=== PATIENT | female | born 1935 | race Caucasian/White ===

== ENCOUNTER 2017-07-30 11:06 | Outpatient (CLI) | payer MEDICARE, OTHER ==
[2016-02-17 10:10] VITALS: Ht 157.5 cm; Wt 74.4 kg
[~2017-07-30] VITALS: Ht 157.5 cm; Wt 74.4 kg
--- NOTE | ~2017-07-30 | HEMODYNAMI ---
PATIENT:EMILY RÍOS MEDICAL RECORD: [id number] : 37 LOCATION:D.CAT ADMISSION DATE: 07/30/17 Generatedon:07/30/201714:51 Patient name: EMILY RÍOS Patient #: [id number] SSN: : 1935 Date of study: 07/30/2017 Page: Of Hemodynamic Procedure Report Patient Data Patient Demographics Procedure consent was obtained First Name: EMILY Gender: Female Last Name: KHUSHBU : 1935 Middle Initial: E Age: 82 year(s) Patient #: [id number] Race: Unknown Additional ID: [id number] Contact details Address: [address] [place] [address] State: [place] City: [place] Zip code: [address] Past Medical History Allergies Allergen Reaction Date Comments Reported Other allergy Other 01/15/2016 Actonel, Levofloxacin, Nitrofurantoin Other allergy 07/30/2017 Actonel,Levofloxacin, Nitrofurantion Admission Admission Data Admission Date: 07/30/2017 Admission Time: 11:06 Admit Source: Other Lab Results Lab Result Date: 07/30/2017 Lab Result Time: 0:00 Biochemistry Name Units Result Min Max BUN mg/dl 12 --(-*--)-- 7 18 Creatinine mg/dl 0.6 --(*---)-- 0.6 1.3 CBC Name Units Result Min Max Hematocrit % 41.5 -*(----)-- 42 54 Hemoglobin g/dl 13.6 --(*---)-- 13.5 17.5 Procedure Procedure Types Cath Procedure Diagnostic Procedure LHC LHC w/Coronaries w/Grafts PCI Procedure Coronary Stent Coronary Stent Initial Miscellaneous Procedures Moderate Sedation up to 45 minutes Procedure Description Procedure Date Procedure Date: 07/30/2017 Procedure Start Time: 14:12 Procedure End Time: 14:51 Procedure Staff Name Function Chito Clayton MD Performing Physician Dane Lechuga RT Monitor Heide Reyes RT Scrub Katina Mckoy RN Nurse Procedure Data Cath Procedure Fluoroscopy Diagnostic fluoroscopy Total fluoroscopy Time: 6.2 time: 6.2 min min Diagnostic fluoroscopy Total fluoroscopy dose: 721 dose: 721 mGy mGy Contrast Material Contrast Material Type Amount (ml) Isovue 300 130 Entry Location Entry Primary Successful Side Size Upsize Upsize Entry Closure Succes sful Closure Location (Fr) 1 (Fr) 2 (Fr) Remarks Device Remarks Femoral Right 5 Fr 6 Fr Exoseal artery Short Estimated blood loss: 5 ml Diagnostic catheters Device Type Used For End Catheter Placement MULTIPACK JL 4.0 5Fr Procedure catheter DIAGNOSTIC AR MOD 5Fr Procedure Catheter ([id number]) MULTIPACK Pigtail 5 Fr Procedure catheter Procedure Complications No complications Procedure Medications Medication Administration Route Dosage Oxygen NC 2 l/min Heparin Flush Bag added to field 2 bags (1000units/500ml NS) 0.9% NaCl I.V. 100 ml/hr Fentanyl I.V. 50 mcg Versed I.V. 1 mg Versed I.V. 1 mg Fentanyl I.V. 50 mcg Heparin Bolus I.V. 7.5 units Nitroglycerin IC/IA I.C. 100 mcg Brilinta P.O. 180 mg Hemodynamics Rest HGB: 13.6 (g/dl) Heart Rate: 70 (bpm) Pressure Samples Time Site Value (mmHg) Purpose Heart Use Rate(bpm) 14:24 LV 172/-4,14 Snapshot 68 14:25 AO 153/65(98) Pullback 70 14:25 LV 170/2,16 Pullback 70 Gradients Valve Time Site 1 Site 2 Mean SEP/DFP Peak To Heart Use (mmHg) (sec/min) Peak Rate (mmHg) (bpm) Aortic 14:25 LV AO 15 19 17 70 170/2,16 153/65(98) Calculations Valve P-P Mean Valve Index Valve Source Name Gradient Area Flow (cm2) Aortic 17 15 17 15 Snapshots Pre Cath Intra NCS Post Cath Vital Signs Time Heart Resp SPO2 etCO2 NIBP (mmHg) Rhythm Pain Sedation Rate (ipm) (%) (mmHg) Status Level (bpm) 14:04:11 59 17 97 0 164/77(130) NSR 0 (11) 10(A) , No pain 14:08:52 74 19 98 0 144/80(137) NSR 0 (11) 10(A) , No pain 14:13:34 67 21 96 40.4 155/83(127) NSR 0 (11) 10(A) , No pain 14:18:15 74 20 96 31.2 141/80(124) NSR 0 (11) 10(A) , No pain 14:22:58 70 20 97 0 153/73(130) NSR 0 (11) 9(A) , No pain 14:27:42 69 19 98 17.5 130/73(118) NSR 0 (11) 9(A) , No pain 14:32:23 64 22 99 38.1 147/71(122) NSR 0 (11) 9(A) , No pain 14:37:06 65 20 98 37.3 146/77(123) NSR 0 (11) 9(A) , No pain 14:41:48 68 16 99 38.1 157/85(130) NSR 0 (11) 9(A) , No pain 14:46:31 78 22 98 35 162/93(126) NSR 0 (11) 10(A) , No pain 14:51:17 64 13 99 35 168/84(145) NSR 0 (11) 10(A) , No pain Medications Time Medication Route Dose Verified Delivered Reason Not es Effectiveness by by 14:02:28 Oxygen NC 2 l/min Chito Francisco J Per physician Forrest Hilton RN 14:02:42 Heparin Flush added 2 bags Chito Francisco J used for Bag to Forrest Hilton RN procedure (1000units/500ml field NS) 14:02:57 0.9% NaCl I.V. 100 Chito Francisco J Per physician ml/hr Forrest Hilton RN 14:08:45 Fentanyl I.V. 50 mcg Chito Francisco J for sedation Forrest Hilton RN 14:08:51 Versed I.V. 1 mg Chito Francisco J for sedation Forrest Hilton RN 14:13:55 Versed I.V. 1 mg Chito Francisco J for sedation Forrest Hilton RN 14:14:05 Heparin Bolus I.V. 7.5units Chito Francisco J for diane ified Forrest Hilton RN anticoagulation by 14:14:05 Fentanyl I.V. 50 mcg Chito Francisco J for sedation Forrest Hilton RN 14:42:53 Nitroglycerin I.C. 100mcg Chito Dale for IC/IA Forrest Clayton MD vasodilation 14:43:14 Brilinta P.O. 180 mg Chito [place] for Forrest Carrillo RN antiplatelet therapy Procedure Log Time Note 13:40:39 Informed consent obtained and on chart 13:40:54 Admit Source: Other 13:40:56 Diagnostic Cath status Elective 13:40:59 Time tracking: Regular hours 13:41:02 Plan of Care:Hemodynamics will remain stable., Cardiac rhythm will remain stable., Comfort level will be maintained., Respiratory function will remain adequate., Patient/ family verbilizes understanding of procedure., Procedure tolerated without complication., Recovers from procedure without complications.. 13:41:15 H&P Date Dictated: 07/17/2017 Within 30 days and on chart., H&P Addendum completed by physician on day of procedure. (MUST COMPLETE FOR ALL OUTPATIENTS). 13:44:44 Heide Reyes RT(R) sent for patient. Start room use. 13:50:36 Patient received from Pre/Post Procedure Room to CCL 1 Alert and oriented. Tansferred to table in Supine position. 13:50:42 Warm blankets applied, and misbah hugger turned on for patient comfort. 13:50:43 Correct patient and procedure confirmed by team. 13:50:45 ECG and BP/O2 sat monitors applied to patient. 14:02:28 Oxygen 2 l/min NC was administered by Francisco J Hilton RN; Per physician; 14:02:42 Heparin Flush Bag (1000units/500ml NS) 2 bags added to field was administered by Francisco J Hilton RN; used for procedure; 14:02:57 0.9% NaCl 100 ml/hr I.V. was administered by Francisco J Hilton RN; Per physician; 14:03:12 Vital chart was started 14:03:25 Rhythm: sinus rhythm 14:03:27 Pre-procedure instructions explained to patient. 14:03:28 Pre-op teaching completed and patient verbalized understanding. 14:03:30 Family in patients room. 14:03:32 Patient NPO since Midnight. 14:04:16 Patient allergic to Other allergyActonel,Levofloxacin, Nitrofurantion 14:04:19 Is the patient allergic to Iodine/contrast media? No. 14:04:21 Is patient on blood thinner?No 14:04:22 Patient diabetic? No. 14:04:26 Previous problem with sedation/anesthesia? No ? 14:04:27 Snore? Yes 14:04:28 Sleep apnea? No 14:04:30 Deviated septum? No 14:04:30 Opens mouth fully? Yes 14:04:31 Sticks out tongue? Yes 14:04:32 Airway obstruction? No ? 14:04:34 Dentures? No ? 14:04:37 Pre procedure: right dorsailis pedis pulse 1+ Palpable, but thready & weak; easily obliterated 14:04:40 Patient pain scale 0/10 ?. 14:04:58 IV patent on arrival in left forearm with 0.9% NaCl at [facility]. 14:05:26 Lab results completed and on chart. 14:06:51 Lab Result : BUN 12 mg/dl 14:06:51 Lab Result : Creatinine 0.6 mg/dl 14:06:51 Lab Result : Hematocrit 41.5 % 14:06:51 Lab Result : Hemoglobin 13.6 g/dl 14:07:46 Right groin area was prepped with chlora-prep and draped in sterile fashion 14:07:47 Alarms reviewed by R. N. 14:07:47 Sharps counted by scrub and verified by R.N. 14:07:52 Use device set Femoral Dx 14:07:55 ACIST Manifold (41311) opened to sterile field. 14:07:56 ACIST Hand Control (01087) opened to sterile field. 14:07:57 Medline Cath Pack ([id number]) opened to sterile field. 14:07:58 ACIST Syringe (21443) opened to sterile field. 14:07:59 Bag Decanter (2002S) opened to sterile field. 14:08:02 Tegaderm 4 x 4 (1626W) opened to sterile field. 14:08:04 PERCUTANEOUS ENTRY 19GA needle opened to sterile field. 14:08:05 DIAGNOSTIC Multipack 5Fr catheter set (FE1139) opened to sterile field. 14:08:06 DIAGNOSTIC WIRE .035 260cm J wire (457876) opened to sterile field. 14:08:08 SHEATH 5FR Keystone (FWQ889) opened to sterile field. 14:08:17 Physician arrived 14:08:17 --------ALL STOP TIME OUT------ 14:: Final Timeout: patient, procedure, and site verified with staff and physician. All members of the team are in agreement. 14:08:18 Final Timeout: patient, procedure, and site verified with staff and physician. All members of the team are in agreement. 14:: Right groin site verified by team. 14:: Physical assessment completed. ASA score P 2 - A patient with mild systemic disease as per Chito Clayton MD. :: Sedation plan: IV Moderate Sedation Medication:Versed, Fentanyl 14::34 Baseline sample Acquired. 14:08:45 Fentanyl 50 mcg I.V. was administered by Francisco J Hilton RN; for sedation; 14:08:51 Versed 1 mg I.V. was administered by Francisco J Hilton RN; for sedation; 14:11:08 Zero performed for pressure channel P1 14:12:50 Procedure started. 14:12:51 Full Disclosure recording started 14:12:53 Local anesthetic to right femoral artery with Lidocaine 2% by Chito Clayton MD.INITIAL ACCESS ONLY 14:13:55 Versed 1 mg I.V. was administered by Francisco J Hilton RN; for sedation; 14:14:05 Heparin Bolus 7.5units I.V. was administered by Francisco J Hilton RN; for anticoagulation; verified by 14:14:05 Fentanyl 50 mcg I.V. was administered by Francisco J Hilton RN; for sedation; 14:15:09 A 5 Fr sheath was inserted into the Right Femoral artery 14:15:17 A MULTIPACK JL 4.0 5Fr catheter was advanced over the wire and used for Procedure. 14:17:18 Catheter exchanged over wire. 14:17:25 A DIAGNOSTIC AR MOD 5Fr Catheter ([id number]) was advanced over the wire and used for Procedure. 14:18:53 SVG to RCA angiography performed. 14:19:41 RCA angiography performed. 14:20:47 Catheter exchanged over wire. 14:21:30 DIAGNOSTIC ROL7AZG Catheter was advanced over [facility] wire and used for Procedure. 14:22:50 SHIPLEY to LAD angiography performed. 14:23:48 Catheter exchanged over wire. 14:24:00 A MULTIPACK Pigtail 5 Fr catheter was advanced over the wire and used for Procedure. 14:24:23 BMW 300cm [place] 2 J wire ([id number]) opened to sterile field. 14:24:24 GUIDE 6FR XBLAD 3.5 catheter ([id number]) opened to sterile field. 14:25:55 Catheter removed. 14:27:34 INFLATOR Merit BasixCompak (QK1056) opened to sterile field. 14:27:35 TUBING High Pressure Extension Tubing (Clayton) (PS5335Y) opened to sterile field. 14:27:35 SHEATH 6FR Keystone (MUN381) opened to sterile field. 14:28:23 Sheath upsized to a 6 Fr Short. 14:28:36 6 Fr xblad 3.5 guide catheter was inserted over the wire 14:32:11 bmw wire advanced. 14:36:26 Wire advanced across lesion. 14:37:18 EXOSEAL 6Fr (EX600) opened to sterile field. 14:39:05 Inflation Number: 1 A ALIVIA OTW 2.75 x 12 stent ([id number]) was prepped and advanced across the 1st Diag. The stent was deployed at 10 DENIA for 0:13 (min:sec). 14:42:53 Nitroglycerin IC/IA 100mcg I.C. was administered by Chito Clayton MD; for vasodilation; 14:43:14 Brilinta 180 mg P.O. was administered by Arcelia Carrillo RN; for antiplatelet therapy; 14:44:08 Stent catheter was removed intact over wire. 14:44:09 Wire removed. 14:44:10 Guide catheter removed. 14:44:27 Sheath removed intact; hemostasis achieved with Exoseal to the Right Femoral artery. 14:44:42 Procedure ended.(Physican Out) 14:44:53 Fluoroscopy time 06.20 minutes. 14:44:57 Flurop Dose total: 721 14:44:57 Fluoroscopy dose: 721 mGy 14:45:01 Contrast amount:Isovue 300 130ml. 14:45:03 Sharps counted by scrub and verified by R.N. 14:45:11 Insertion/operative site no bleeding no hematoma. 14:45:14 Post-op/insertion site Right Femoral artery dressed using a 4 x 4 and Tegaderm. 14:45:19 Post right femoral artery:stable, soft, clean and dry 14:45:28 Post Procedure Pulses reassessed and unchanged 14:45:34 Post-procedure physical assessment completed. ASA score P 2 - A patient with mild systemic disease as per Chito Clayton MD. 14:45:36 Post procedure rhythm: unchanged. 14:45:39 Estimated blood loss: 5 ml 14:45:40 Post procedure instruction explained to patient.Patient verbalizes understanding. 14:45:41 Patient needs reinforcement of post procedure teaching. 14:47:09 Procedure type changed to Cath procedure, Diagnostic procedure, LHC, LHC w/Coronaries w/Grafts, PCI procedure, Coronary Stent, Coronary Stent Initial, Miscellaneous Procedures, Moderate Sedation up to 45 minutes 14:50:54 Procedure and supply charges have been captured, reviewed, submitted and are correct. 14:50:56 Procedure Complication : No complications 14:50:58 Vital chart was stopped 14:50:59 See physician's report for complete and final results. 14:51:00 Report given to Pre/Post Procedure Room. 14:51:03 Patient transfered to Pre/Post Procedure Room with Stretcher. 14:51:05 Procedure ended. 14:51:05 Full Disclosure recording stopped 14:51:10 End room use (Document Last) Intervention Summary Intervention Notes Time ActionType Lesion and Equipment Action# Pressure Duration Attributes Used 14:39:05 Place stent 1st Diag ALIVIA OTW 2.75 1 10 00:13 x 12 stent ([id number]) Device Usage Item Name Manufacture Quantity Catalog Hospital Part Current Mini mal Lot# / Number Charge Number Stock Stock Serial# Code ACIST Acist 1 46445 580157 841178 395383 5 Manifold Medical (16512) Systems Inc ACIST Hand Acist 1 05984 546868 021075 313315 5 Control Medical (61614) Systems Inc Medline Cath Cardinal 1 [id number] 715284 19510 474793 5 Pack Health ([id number]) ACIST Syringe Acist 1 45461 409109 844358 465983 20 (88831) Medical Systems Inc Bag Decanter Microtek 1 2001S 668324 36984 682687 5 (2001S) Medical Inc. Tegaderm 4 x 3M 1 1626W 189878 750144 933951 5 4 (1626W) PERCUTANEOUS Cook Medical 1 A42071 421314 875163 5 ENTRY 19GA needle DIAGNOSTIC Cardinal 1 VW4873 120177 53062 764861 30 Multipack 5Fr Health catheter set (AD2554) DIAGNOSTIC [facility] 1 446997 239822 513866 879548 30 WIRE .035 260cm J wire (924162) SHEATH 5FR Terumo 1 KSA277 420167 910582 910384 40 Keystone (IHZ357) MULTIPACK JL Cardinal 1 243459 5 4.0 5Fr Health catheter DIAGNOSTIC AR Cardinal 1 [id number] 905384 094855 810655 15 MOD 5Fr Health Catheter (922343W) MULTIPACK Cardinal 1 313291 5 Pigtail 5 Fr Health catheter BMW 300cm [place] 1 [id number] 423836 234489 829861 5 [place] 2 J Vascular wire ([id number]) GUIDE 6FR Cardinal 1 [id number] 827774 454116 549457 10 XBLAD 3.5 Health catheter (84144068) INFLATOR Merit 1 OI0535 260474 315869 264319 15 Merit Medical BasixCompak (CE0201) TUBING High Merit 1 [id number] 174493 81824 426986 10 Pressure Medical Extension Tubing (Clayton) (FN8768V) SHEATH 6FR Terumo 1 ZTO834 627474 694056 291838 40 Keystone (DCE515) EXOSEAL 6Fr Cardinal 1 EX600 434702 155781 386224 10 (EX600) Health ALIVIA OTW 2.75 Medtronic 1 [id number] 855386 6071993 443619 5 [id number] x 12 stent ([id number]) Signature Audit [place] Stage Time Signature Unsigned Intra-Procedure 07/30/2017 Dane Lechuga 2:51:50 PM RT(R) Signatures Monitor : Dane Lechuga RT Signature : Date : Time : [facility] [address] [place] [address]
[~2017-07-30 11:06] MED LIST: ACCUPRIL40 MG PO; BAYER CHEWABLE81 MG PO; CALCIUM 600 +1 EAC3; CALCIUM 600 +1 EAC3 PO; COLACE100 MG PO; FISH OIL 1,0001 CA1 PO; FISH OIL 1,2001 CAP; FLEX A MIN; FLEX A MIN PO; HCTZ25 MG PO; HYDROCODON-ACE1 EAC7 PO; K-DUR20 MEQ PO; LASIX40 MG PO; LEVOTHYROXINE50 MCG PO; LOPRESSOR25 MG PO; MULTIPLE VITAMI1 TA1 PO; NITRO-DUR0.1 MG TRANSDERM; OMEPRAZOLE CAP 20M; OMEPRAZOLE20 M1 PO; PEPCID20 MG PO; SENOKOT-S TABLE1 TAB PO; ULTRAM50 MG PO; VITAMIN B-1000 MCG/M IM
[2017-07-30 13:30] LABS: BASOPHILS 0.4 % (0-2); EOSINOPHILS 1.6 % (0-7); HEMATOCRIT 41.5 % (36.0-48.0); HEMOGLOBIN 13.6 g/dL (12-16); IMMATURE GRANULOCYTES 0.9 % (0-5); LYMPHOCYTES 21.9 % (15-50); MCH 29.4 pg (26.0-34.0); MCHC 32.8 g/dL (31.0-37.0); MCV 89.6 fL (80.0-100.0); MEAN PLATELET VOLUME 9.4 fL (7.4-10.4); MONOCYTES 9.2 % (2-11); PLATELET COUNT 298 10x3/uL (130-400); RBC 4.63 10x6/uL (4.00-5.40); RDW 13.6 % (11.5-14.5)
[2017-07-30 13:48] LABS: CALC OSMOLALITY 269 mosm/kg (275-300); CARBON DIOXIDE 29.9 mmol/L (21.0-32.0); CHLORIDE - SERUM 98 mmol/L (98-107); CREATININE - SERUM 0.6 mg/dL (0.6-1.3); GLUCOSE 97 mg/dL (74-106); POTASSIUM - SERUM 4.5 mmol/L (3.5-5.1); SODIUM 135 mmol/L (136-145); UREA NITROGEN 12 mg/dL (7-18); eGFR NON AFRICAN AMERICAN > 90 mL/min (90-120)
[2017-07-30] MEDS ORDERED: GLUCOSAMINE & C1 CAP PO (14:00)
--- NOTE | 2017-07-30 15:21 | NUR ---
1505 RECEIVED PT FROM TRACK REPAIRER. PT DENIES ANY C/O PAIN OR NAUSEA. PT IS DROWSY. DRESSING TO RIGHT GROIN IS CDI, AREA IS SOFT AND NONTENDER. PEDAL PULSES PALPABLE. RR EVEN AND UNLABORED. SINUS BRADYCARDIA WITH RATE OF 57. BP IS 177/78. AT BEDSIDE. CALL LIGHT IN REACH.
--- NOTE | 2017-07-30 15:22 | NUR ---
PT DENIES ANY C/O. DRESSING CDI. SINUS BRADYCARDIA WITH RATE OF 54, DENIES ANY C/O CHEST PAIN.
--- NOTE | 2017-07-30 15:55 | NUR ---
DRESSING TO RIGHT GROIN IS CDI, AREA IS SOFT AND NONTENDER. PEDAL PULSES PALPABLE. BP IS 162/72. NSR, RATE 62. PT DENIES ANY C/O. IS AT BEDSIDE.
--- NOTE | 2017-07-30 16:29 | NUR ---
DRESSING TO RIGHT GROIN IS CDI, AREA IS SOFT AND NONTENDER. PEDAL PULSES PALPABLE. PT DENIES ANY C/O. AT BEDSIDE.
--- NOTE | 2017-07-30 16:50 | NUR ---
DRESSING TO RIGHT GROIN IS CDI, AREA IS SOFT AND NONTENDER. PEDAL PULSES PALPABLE. PT DENIES ANY C/O. AT BEDSIDE. CALL LIGHT IN REACH. VSS. NSR, RATE 61.
--- NOTE | 2017-07-30 17:44 | NUR ---
PT WATCHING TV WITH AT BEDSIDE. DRESSING TO RIGHT GROIN IS CDI, AREA SOFT AND NONTENDER. VSS, NSR WITH RATE OF 65. CALL LIGHT IN REACH, PT DENIES NEEDS AT THIS TIME.
[2017-07-30] MEDS ORDERED: BRILINTA90 MG PO (17:52)
--- NOTE | 2017-07-30 18:20 | NUR ---
1819 HOB ELEVATED 40 DEGREES, SANDWICH AND PO FLUIDS SERVED.
--- NOTE | 2017-07-30 18:35 | NUR ---
1835 DC INSTRUCTIONS REVIEWED WITH PT AND WHO VERBALIZE UNDERSTANDING. BRILINTA PRESCRIPTION, STENT CARD, EXOSEAL BOOKLET AND HOMECARE INFORMATION TO PATIENT. DRESSING TO RIGHT GROIN REMAINS CDI, AREA SOFT AND NONTENDER.
--- NOTE | 2017-07-30 19:06 | NUR ---
1900 IV CATH HAS BEEN DC'D WITH CATH TIP INTACT. ASSISTED PT WITH DRESSING FOR DC TO HOME. DRESSING TO RIGHT GROIN REMAINS CDI, AREA SOFT AND NONTENDER. PT ESCORTED TO THE BATHROOM VIA WC AND VOIDED QS. PT ESCORTED TO PRIVATE AUTO VIA WC WITH SPOUSE DRIVING HER HOME. PT DENIES ANY C/O UPON DC TO HOME.
== END 2017-07-30 19:00 | disposition home or self-care (01) ==
LOC: D.CATH 11:06
PROVIDERS: Internal Medicine Cardiovascular Disease
DX: I25.110 Atherosclerotic heart disease of native coronary artery with unstable angina pectoris (principal); Z01.812 Encounter for preprocedural laboratory examination; Z95.1 Presence of aortocoronary bypass graft
CPT/HCPCS: 93459; C9600

== ENCOUNTER → 2018-02-12 07:53 | Outpatient (CLI) | payer MEDICARE, OTHER ==
[2016-02-17 10:10] VITALS: BMI 29.8
[~2018-02-12 07:53] MED LIST changes: +BRILINTA90 MG PO; +GLUCOSAMINE & C1 CAP PO
== END | disposition home or self-care (01) ==
LOC: D.CT 07:53
DX: I73.9 Peripheral vascular disease, unspecified (principal)

== ENCOUNTER 2018-08-06 07:04 | Outpatient (CLI) | payer MEDICARE, OTHER ==
[~2018-08-06] VITALS: Ht 157.5 cm; Wt 74.5 kg
--- NOTE | ~2018-08-06 | HEMODYNAMI ---
PATIENT:EMILY RÍOS MEDICAL RECORD: [id number] : 37 LOCATION:D.CAT ADMISSION DATE: 08/06/18 Generatedon:08/06/20189:42 Patient name: EMILY RÍOS Patient #: [id number] SSN: : 1935 Date of study: 08/06/2018 Page: Of Hemodynamic Procedure Report Patient Data Patient Demographics Procedure consent was obtained First Name: EMILY Gender: Female Last Name: KHUSHBU : 1935 Middle Initial: E Age: 83 year(s) Patient #: [id number] Race: Unknown Additional ID: [id number] Contact details [address]: [address] [place] [address] State: [place] City: [place] Zip code: [address] Past Medical History Allergies Allergen Reaction Date Comments Reported Other allergy Other 01/15/2016 Actonel, Levofloxacin, Nitrofurantoin Other allergy 07/30/2017 Actonel,Levofloxacin, Nitrofurantion Other allergy 08/06/2018 CRESTOR, LIPITOR, LEVAQUIN, NORVASC, PRAVASTATIN, SEPTRA, ZOCOR Admission Admission Data Admission Date: 08/06/2018 Admission Time: 7:04 Height (in.): 64 BSA: 1.8 (m2) Height (cm.): 162.56 BMI: 28.15 (kg/m2) Weight (lbs.): 164 Weight (kg.): 74.39 Lab Results Lab Result Date: 08/06/2018 Lab Result Time: 0:00 Biochemistry Name Units Result Min Max BUN mg/dl 17 --(---*)-- 7 18 Creatinine mg/dl 7 --(----)-* 0.6 1.3 CBC Name Units Result Min Max Hemoglobin g/dl 10.6 *-(----)-- 13.5 17.5 Procedure Procedure Types Cath Procedure Diagnostic Procedure Sedation Charges Moderate Sedation up to 15 minutes Peripheral Cath Diagnostic Procedure Director Of Academic Peripheral Procedures Jvvxs-Czuuosl-Lff-Off Procedure Description Procedure Date Procedure Date: 08/06/2018 Procedure Start Time: 9:28 Procedure End Time: 9:39 Procedure Staff Name Function Chito Clayton MD Performing Physician Heide Reyes RT Monitor Rosa Elena Macdonald RT Scrub Lorena Batista RN Nurse Katina Mckoy RN Nutrition Professor Procedure Data Cath Procedure Fluoroscopy Diagnostic fluoroscopy Total fluoroscopy Time: 0.7 time: 0.7 min min Diagnostic fluoroscopy Total fluoroscopy dose: 116 dose: 116 mGy mGy Contrast Material Contrast Material Type Amount (ml) Isovue 300 78 Entry Location Entry Primary Successful Side Size Upsize Upsize Entry Closure Succes sful Closure Location (Fr) 1 (Fr) 2 (Fr) Remarks Device Remarks Femoral Right 5 Fr Exoseal artery Estimated blood loss: 5 ml Diagnostic catheters Device Type Used For End Catheter Placement DIAGNOSTIC UF 5Fr Procedure catheter ([id number]) Procedure Complications No complications Procedure Medications Medication Administration Route Dosage 0.9% NaCl I.V. 100 ml/hr Oxygen etCO2 Nasal cannula 2 l/min Lidocaine 2% added to field 20 Heparin Flush Bag added to field 2 bags (1000units/500ml NS) Versed I.V. 2 mg Fentanyl I.V. 50 mcg Versed I.V. 2 mg Fentanyl I.V. 50 mcg Hemodynamics Rest BSA: 1.8 (m2) HGB: 10.6 (g/dl) O2 Consumption: Estimated: 155.28 (ml/min) O2 Con sumption indexed: Estimated:86.27 (ml/min/m) Heart Rate: 62 (bpm) Snapshots Pre Cath Intra NCS Post Cath Vital Signs Time Heart Resp SPO2 etCO2 NIBP (mmHg) Rhythm Pain Sedation Rate (ipm) (%) (mmHg) Status Level (bpm) 9:10:42 60 16 99 33.7 162/72(132) NSR 0 (11) 10(A) , No pain 9:15:02 60 14 100 35.2 144/68(112) NSR 0 (11) 10(A) , No pain 9:19:27 58 14 96 36.8 130/56(82) NSR 0 (11) 10(A) , No pain 9:23:41 60 14 98 33 132/58(97) NSR 0 (11) 9(A) , No pain 9:27:59 61 11 97 35 122/59(106) NSR 0 (11) 10(A) , No pain 9:32:13 60 12 96 36.8 133/60(99) NSR 0 (11) 9(A) , No pain 9:36:31 64 12 96 35.2 124/61(96) NSR 0 (11) 10(A) , No pain Medications Time Medication Route Dose Verified Delivered Reason Notes Effe ctiveness by by 9:09:48 0.9% NaCl I.V. 100 Chito Lorena used for ml/hr Forrest Batista vaccines solutions specialist 9:09:56 Oxygen etCO2 2 Chito Lorena used for Nasal l/min Forrest Batista procedure cannula RN 9:10:01 Lidocaine 2% added 20ml Chito Chito for local to vial Forrest Clayton MD anesthetic field 9:10:06 Heparin Flush added 2 Chito Chito used for Bag to bags Forrest Clayton MD procedure (1000units/500ml field NS) 9:21:40 Versed I.V. 2 mg Chito Chito for Forrest Clayton MD sedation 9:21:52 Fentanyl I.V. 50 Chito Chito for mcg Forrest Clayton MD sedation 9:29:36 Versed I.V. 2 mg Chito Chito for Forrest Clayton MD sedation 9:29:39 Fentanyl I.V. 50 Chito Chito for mcg Forrest Clayton MD sedation Procedure Log Time Note 8:48:06 Diagnostic Cath status Elective 8:48:08 Signed procedure consent form obtained from patient. 8:48:09 Time tracking: Regular hours (M-F 7:00 - 5:00) 8:48:12 Plan of Care:Hemodynamics will remain stable., Cardiac rhythm will remain stable., Comfort level will be maintained., Respiratory function will remain adequate., Patient/ family verbilizes understanding of procedure., Procedure tolerated without complication., Recovers from procedure without complications.. 8:48:57 Patient allergic to Other allergyCRESTOR, LIPITOR, LEVAQUIN, NORVASC, PRAVASTATIN, SEPTRA, ZOCOR 8:50:16 Patient Height : 64 inches 8:50:20 Patient Weight : 164 lbs 8:51:05 Lab Result : BUN 17 mg/dl 8:51:05 Lab Result : Creatinine 7 mg/dl 8:51:05 Lab Result : Hemoglobin 10.6 g/dl 8:55:51 Katina Mckoy RN sent for patient. Start room use. 9:03:38 Patient received from Pre/Post Procedure Room to CCL 1 Alert and oriented. Tansferred to table in Supine position. 9:03:39 Warm blankets applied, and misbah hugger turned on for patient comfort. 9:03:40 Correct patient and procedure confirmed by team. 9:03:40 ECG and BP/O2 sat monitors applied to patient. 9:09:28 Vital chart was started 9:09:48 0.9% NaCl 100 ml/hr I.V. was administered by Lorena Batista RN; used for procedure; 9:09:56 Oxygen 2 l/min etCO2 Nasal cannula was administered by Lorena Batista RN; used for procedure; 9:10:01 Lidocaine 2% 20ml vial added to field was administered by Chito Clayton MD; for local anesthetic; 9:10:06 Heparin Flush Bag (1000units/500ml NS) 2 bags added to field was administered by Chito Clayton MD; used for procedure; 9:15:37 Full Disclosure recording started 9:15:43 H&P Date Dictated: 08/06/2018 Within 30 days and on chart., H&P Addendum completed by physician on day of procedure. (MUST COMPLETE FOR ALL OUTPATIENTS). 9:15:44 Pre-procedure instructions explained to patient. 9:15:45 Pre-op teaching completed and patient verbalized understanding. 9:15:56 Family in patients room. 9:15:57 Patient NPO since Midnight. 9:15:59 Is patient on blood thinner?Yes 9:16:02 ACC The patient was administered the following blood thiners within the last 24 hours: ACCPlavix 9:16:04 Patient diabetic? No. 9:16:06 Previous problem with sedation/anesthesia? No ? 9:16:07 Snore? No 9:16:09 Sleep apnea? No 9:16:10 Deviated septum? No 9:16:11 Opens mouth fully? Yes 9:16:11 Sticks out tongue? Yes 9:16:13 Airway obstruction? No ? 9:16:15 Dentures? No ? 9:16:20 Patient pain scale 0/10 ?. 9:16:26 IV patent on arrival in left hand with 0.9% NaCl at [facility]. 9:16:29 Lab results completed and on chart. 9:16:34 Bilateral groins area was prepped with chlora-prep and draped in sterile fashion 9:16:35 Alarms reviewed by R. N. 9:16:35 Sharps counted by scrub and verified by R.N. 9:19:52 Pre procedure: right dorsailis pedis pulse 0-Absent 9:19:55 Pre procedure: left dorsailis pedis pulse 0-Absent 9:20:00 --------ALL STOP TIME OUT------ 9:20:00 Final Timeout: patient, procedure, and site verified with staff and physician. All members of the team are in agreement. 9:20:02 Bilateral groins site verified by team. 9:20:05 Physical assessment completed. ASA score P 2 - A patient with mild systemic disease as per Chito Clayton MD. 9:20:08 Sedation plan: IV Moderate Sedation Medication:Versed, Fentanyl 9:20:15 Baseline sample Acquired. 9:20:19 Rhythm: sinus bradycardia 9:20:25 Use device set CATH PACK 9:20:26 ACIST Syringe ([id number]) opened to sterile field. 9:20:26 ACIST Hand Control (23928) opened to sterile field. 9:20:27 ACIST Manifold (40735) opened to sterile field. 9:20:27 Medline Cath Pack ([id number]) opened to sterile field. 9:20:27 Bag Decanter (2002) opened to sterile field. 9:20:28 DIAGNOSTIC WIRE .035 260cm J wire ([id number]) opened to sterile field. 9:20:39 SHEATH 5FR [place] (DEK213) opened to sterile field. 9:21:40 Versed 2 mg I.V. was administered by Chito Clatyon MD; for sedation; 9::52 Fentanyl 50 mcg I.V. was administered by Chito Clayton MD; for sedation; 9:28:18 Procedure started. 9:28:28 Local anesthetic to right femoral artery with Lidocaine 2% by Chito Clayton MD.INITIAL ACCESS ONLY 9:29:36 Versed 2 mg I.V. was administered by Chito Clayton MD; for sedation; 9:29:39 Fentanyl 50 mcg I.V. was administered by Chito Clayton MD; for sedation; 9:30:15 A 5 Fr sheath was inserted into the Right Femoral artery 9:31:20 A DIAGNOSTIC UF 5Fr catheter ([id number]) was advanced over the wire and used for Procedure. 9:32:39 Abdominal angiogram w/ runoff was performed. 9:33:25 Left leg runoff performed. 9:34:11 Right leg runoff performed. 9:36:03 Catheter removed. 9:36:09 EXOSEAL 5Fr (EX500) opened to sterile field. 9:36:41 Sheath removed intact; hemostasis achieved with Exoseal to the Right Femoral artery. 9:37:40 Procedure ended.(Physican Out) 9:38:12 Fluoroscopy time 00.70 minutes. 9:38:15 Fluoroscopy dose: 116 mGy 9:38:15 Flurop Dose total: 116 9:38:21 Contrast amount:Isovue 300 78ml. 9:38:23 Sharps counted by scrub and verified by R.N. 9:38:28 Post-op/insertion site Right Femoral artery dressed using a 4 x 4 and Tegaderm. 9:38:32 Post right femoral artery:stable, soft, clean and dry 9:38:36 Post-procedure physical assessment completed. ASA score P 2 - A patient with mild systemic disease as per Chito Clayton MD. 9:38:40 Post procedure rhythm: unchanged. 9:38:44 Estimated blood loss: 5 ml 9:38:45 Post procedure instruction explained to patient.Patient verbalizes understanding. 9:38:46 Patient needs reinforcement of post procedure teaching. 9:39:11 Procedure type changed to Cath procedure, Diagnostic procedure, Sedation Charges, Moderate Sedation up to 15 minutes, Peripheral Cath Diagnostic Procedure, Director Of Academic Peripheral Procedures, Oflgp-Eobcuga-Zhm-Off 9:39:33 Procedure and supply charges have been captured, reviewed, submitted and are correct. 9:39:37 Procedure Complication : No complications 9:39:39 Vital chart was stopped 9:39:40 See physician's report for complete and final results. 9:39:41 Report given to Pre/Post Procedure Room. 9:39:44 Patient transfered to Pre/Post Procedure Room with Bed. 9:39:46 Procedure ended. 9:39:46 Full Disclosure recording stopped 9:39:49 End room use (Document Last) Device Usage Item Name Manufacture Quantity Catalog Hospital Part Current Minimal L ot# / Number Charge Number Stock Stock Serial# Code ACIST Acist 1 [id number] 589200 [id number] 20 Syringe Medical (55040) Systems Inc ACIST Hand Acist 1 24523 789352 500161 378142 5 Control Medical (18829) Systems Inc ACIST Acist 1 90820 911799 835672 165068 5 Manifold Medical (78295) Systems Inc Medline Medline 1 [id number] 562390 83760 362169 5 Cath Pack ([id number]) Bag Microtek 1 2001S 584399 93910 544343 5 Decanter Medical Inc. (2001S) DIAGNOSTIC [facility] 1 967590 706226 877291 113989 30 WIRE .035 260cm J wire (647081) SHEATH 5FR Terumo 1 OOS033 387115 813747 556619 5 [place] (MYE351) DIAGNOSTIC Cardinal 1 [id number] 797753 420498 381286 10 UF 5Fr Health catheter ([id number]) EXOSEAL 5Fr Cardinal 1 EX500 534815 261922 003886 10 (EX500) Health Signature Audit [place] Stage Time Signature Unsigned Intra-Procedure 08/06/2018 Heide Reyes 9:42:41 AM RT(R) Signatures Monitor : Heide Reyes Signature : RT Date : Time : [id number] [place] [address]
[2018-08-06] MEDS ORDERED: LISINOPRIL10 MG PO (07:26)
[2018-08-06] MEDS ORDERED: PLAVIX75 MG PO (07:26)
[2018-08-06 07:39] VITALS: BP 146/49; Ht 157.5 cm; Wt 74.5 kg
[2018-08-06 07:49] LABS: BASOPHILS 0.6 % (0-2); EOSINOPHILS 2.2 % (0-7); HEMATOCRIT 33.4 % (36.0-48.0); HEMOGLOBIN 10.6 g/dL (12-16); IMMATURE GRANULOCYTES 0.4 % (0-5); LYMPHOCYTES 18.5 % (15-50); MCH 26.6 pg (26.0-34.0); MCHC 31.7 g/dL (31.0-37.0); MCV 83.9 fL (80.0-100.0); MEAN PLATELET VOLUME 8.8 fL (7.4-10.4); NEUTROPHILS 67.3 % (40-80); RBC 3.98 10x6/uL (4.00-5.40); RDW 14.4 % (11.5-14.5)
[2018-08-06 07:58] LABS: PLATELET COUNT 358 10x3/uL (130-400)
[2018-08-06 08:00] LABS: CALC OSMOLALITY 273 mosm/kg (275-300); CALCIUM 9.1 mg/dL (8.5-10.1); CARBON DIOXIDE 24.6 mmol/L (21.0-32.0); CHLORIDE - SERUM 100 mmol/L (98-107); CREATININE - SERUM 0.7 mg/dL (0.6-1.3); GLUCOSE 99 mg/dL (74-106); SODIUM 136 mmol/L (136-145); UREA NITROGEN 17 mg/dL (7-18); eGFR NON AFRICAN AMERICAN 85 mL/min (90-120)
--- NOTE | 2018-08-06 10:05 | NUR ---
PATIENT RESTING, VSS ON ROOM AIR. RIGHT GROIN DRESSING IS CDI, NO S/S OF BLEEDING OR HEMATOMA. NO C/O PAIN,NUMBNESS, OR TINGLING.
--- NOTE | 2018-08-06 10:35 | NUR ---
PATIENT AWAKE, TOLERATING PO FLUIDS. VSS ON ROOM AIR. RIGHT GROIN DRESSING IS CDI, NO S/S OF BLEEDING OR HEMATOMA. AT BEDSIDE.
--- NOTE | 2018-08-06 11:05 | NUR ---
PATIENT AWAKE, HEAD OF BED ELEVATED TO 30 DEGREES. RIGHT GROIN DRESSING IS CDI, NO BLEEDING OR HEMATOMA NOTED. PATIENT EATING RACHEL CRACKERS AND PUDDING, NO N/V.
--- NOTE | 2018-08-06 11:35 | NUR ---
PATIENT AWAKE, HEAD OF BED ELEVATED TO 90 DEGREES. RIGHT GROIN DRESSING IS CDI, NO S/S OF BLEEDING OR HEMATOMA. EDUCATION REGARDING DISCHARGE INSTRUCTIONS GIVEN TO PATIENT AND SPOUSE, ALL QUESTIONS ANSWERED AT THIS TIME. VSS ON ROOM AIR.
--- NOTE | 2018-08-06 12:10 | NUR ---
PATIENT TRANSPORTED VIA WHEELCHAIR TO CAR WITH SPOUSE DRIVING, ALL BELONGINGS WITH PATIENT. PATIENT TAKEN TO RESTROOM ON WAY OUT.
== END 2018-08-06 12:10 ==
LOC: D.CATH 07:04
PROVIDERS: Internal Medicine Cardiovascular Disease
DX: I70.213 Atherosclerosis of native arteries of extremities with intermittent claudication, bilateral legs (principal); R94.8 Abnormal results of function studies of other organs and systems; I25.10 Atherosclerotic heart disease of native coronary artery without angina pectoris; I10 Essential (primary) hypertension; E78.5 Hyperlipidemia, unspecified

== ENCOUNTER → 2018-09-14 08:44 | Outpatient (CLI) | payer MEDICARE, OTHER ==
[~2018-09-14 08:44] MED LIST changes: +CILOSTAZOL100 MG PO; +LISINOPRIL10 MG PO; +PLAVIX75 MG PO; +TOPROL XL50 MG PO
== END | disposition home or self-care (01) ==
LOC: D.HCCARDIO 08:44
DX: I25.810 Atherosclerosis of coronary artery bypass graft(s) without angina pectoris (principal)

== ENCOUNTER 2018-09-24 06:11 | Outpatient (CLI) | payer MEDICARE, OTHER ==
[~2018-09-24] VITALS: Ht 157.5 cm; Wt 72.7 kg
--- NOTE | ~2018-09-24 | HEMODYNAMI ---
PATIENT:EMILY RÍOS MEDICAL RECORD: [id number] : 37 LOCATION:D.CAT ADMISSION DATE: 09/24/18 Generatedon:09/24/20188:17 Patient name: EMILY RÍOS Patient #: [id number] SSN: : 1935 Date of study: 09/24/2018 Page: Of Hemodynamic Procedure Report Patient Data Patient Demographics Procedure consent was obtained First Name: EMILY Gender: Female Last Name: KHUSHBU : 1935 Middle Initial: E Age: 83 year(s) Patient #: [id number] Race: Unknown Additional ID: [id number] Contact details [address]: [address] [place] [address] State: [place] City: [place] Zip code: [address] Past Medical History Allergies Allergen Reaction Date Comments Reported Other allergy Other 01/15/2016 Actonel, Levofloxacin, Nitrofurantoin Other allergy 07/30/2017 Actonel,Levofloxacin, Nitrofurantion Other allergy 08/06/2018 CRESTOR, LIPITOR, LEVAQUIN, NORVASC, PRAVASTATIN, SEPTRA, ZOCOR Other allergy 09/24/2018 Statins, Amlodipine, Valium, Levequin, Nirofurantoin, actonel Admission Admission Data Admission Date: 09/24/2018 Admission Time: 6:11 Lab Results Lab Result Date: 09/24/2018 Lab Result Time: 6:40 Biochemistry Name Units Result Min Max BUN mg/dl 13 --(--*-)-- 7 18 Creatinine mg/dl 0.7 --(*---)-- 0.6 1.3 CBC Name Units Result Min Max Hematocrit % 27.2 *-(----)-- 42 54 Hemoglobin g/dl 8.4 *-(----)-- 13.5 17.5 Procedure Procedure Types Cath Procedure Diagnostic Procedure LHC LHC w/Coronaries w/Grafts Sedation Charges Moderate Sedation up to 15 minutes Procedure Description Procedure Date Procedure Date: 09/24/2018 Procedure Start Time: 7:58 Procedure End Time: 8:17 Procedure Staff Name Function Chito Clayton MD Performing Physician Camron Gilbert RT Supervisor [employer]ty Plant Lorena Batista RN Nurse Dane Lechuga RT Monitor Noris Moe RT Scrub Procedure Data Cath Procedure Fluoroscopy Diagnostic fluoroscopy Total fluoroscopy Time: 3 time: 3 min min Diagnostic fluoroscopy Total fluoroscopy dose: 499 dose: 499 mGy mGy Contrast Material Contrast Material Type Amount (ml) Isovue 300 91 Entry Location Entry Primary Successful Side Size Upsize Upsize Entry Closure Succes sful Closure Location (Fr) 1 (Fr) 2 (Fr) Remarks Device Remarks Femoral Right 5 Fr Exoseal artery Estimated blood loss: 5 ml Diagnostic catheters Device Type Used For End Catheter Placement MULTIPACK JL 4.0 5Fr Procedure catheter DIAGNOSTIC AR MOD 5Fr Procedure Catheter ([id number]) DIAGNOSTIC IM 5Fr Procedure catheter ([id number]) MULTIPACK Pigtail 5 Fr Procedure catheter Procedure Complications No complications Procedure Medications Medication Administration Route Dosage 0.9% NaCl I.V. 100 ml/hr Oxygen etCO2 Nasal cannula 2 l/min Lidocaine 2% added to field 20 Heparin Flush Bag added to field 2 bags (1000units/500ml NS) Versed I.V. 2 mg Fentanyl I.V. 50 mcg Versed I.V. 1 mg Fentanyl I.V. 25 mcg Hemodynamics Rest HGB: 8.4 (g/dl) Heart Rate: 63 (bpm) Pressure Samples Time Site Value (mmHg) Purpose Heart Use Rate(bpm) 8:10 LV 122/-4,21 Snapshot 64 8:11 AO 109/45(71) Pullback 67 8:11 LV 117/2,29 Pullback 67 Gradients Valve Time Site 1 Site 2 Mean SEP/DFP Peak To Heart Use (mmHg) (sec/min) Peak Rate (mmHg) (bpm) Aortic 8:11 LV AO 14 17 8 67 117/2,29 109/45(71) Calculations Valve P-P Mean Valve Index Valve Source Name Gradient Area Flow (cm2) Aortic 8 14 8 14 Snapshots Pre Cath Intra NCS Post Cath Vital Signs Time Heart Resp SPO2 etCO2 NIBP (mmHg) Rhythm Pain Sedation Rate (ipm) (%) (mmHg) Status Level (bpm) 7:41:57 61 14 99 29 124/61(101) NSR 0 (11) 10(A) , No pain 7:46:15 63 12 100 30.8 131/63(102) NSR 0 (11) 10(A) , No pain 7:50:31 66 12 98 27.5 105/59(76) NSR 0 (11) 10(A) , No pain 7:54:45 62 11 100 33 104/54(80) NSR 0 (11) 10(A) , No pain 7:58:57 60 13 100 33 104/55(88) NSR 0 (11) 10(A) , No pain 8:03:09 66 12 99 30 91/55(70) NSR 0 (11) 9(A) , No pain 8:08:22 62 11 99 30 108/52(86) NSR 0 (11) 9(A) , No pain 8:12:36 66 14 100 33 103/54(86) NSR 0 (11) 10(A) , No pain 8:16:48 61 12 100 33 112/57(86) NSR 0 (11) 10(A) , No pain Medications Time Medication Route Dose Verified Delivered Reason Notes Effe ctiveness by by 7:40:32 0.9% NaCl I.V. 100 Chito Lorena used for ml/hr Forrest Batista supervisor plate pasting 7:40:38 Oxygen etCO2 2 Chito Lorena used for Nasal l/min Forrest Batista procedure cannula RN 7:40:44 Lidocaine 2% added 20ml Chito Chito for local to vial Forrest Clayton MD anesthetic field 7:40:58 Heparin Flush added 2 Chito Chito used for Bag to bags Forrest Clayton MD procedure (1000units/500ml field NS) 7:53:15 Versed I.V. 2 mg Chito Lorena for Forrest Batista sedation RN 7:53:21 Fentanyl I.V. 50 Chito Lorena for mcg Forrest Batista sedation RN 7:58:12 Versed I.V. 1 mg Chito Lorena for Forrest Batista sedation RN 7:58:24 Fentanyl I.V. 25 Chito Lorena for mcg Forrest Batista sedation tracer lathe set up operator Log Time Note 7:22:06 Time tracking: Regular hours (M-F 7:00 - 5:00) 7:22:09 Plan of Care:Hemodynamics will remain stable., Cardiac rhythm will remain stable., Comfort level will be maintained., Respiratory function will remain adequate., Patient/ family verbilizes understanding of procedure., Procedure tolerated without complication., Recovers from procedure without complications.. 7:27:33 Camron Gilbert RT(R) sent for patient. Start room use. 7:34:29 Patient received from Pre/Post Procedure Room to CCL 1 Alert and oriented. Tansferred to table in Supine position. 7:34:30 Warm blankets applied, and misbah hugger turned on for patient comfort. 7:34:31 Correct patient and procedure confirmed by team. 7:34:32 Signed procedure consent form obtained from patient. 7:34:32 ECG and BP/O2 sat monitors applied to patient. 7:34:33 Full Disclosure recording started 7:39:42 Vital chart was started 7:40:23 Baseline sample Acquired. 7:40:32 0.9% NaCl 100 ml/hr I.V. was administered by Lorena Batista RN; used for procedure; 7:40:38 Oxygen 2 l/min etCO2 Nasal cannula was administered by Lorena Batista RN; used for procedure; 7:40:44 Lidocaine 2% 20ml vial added to field was administered by Chito Clayton MD; for local anesthetic; 7:40:58 Heparin Flush Bag (1000units/500ml NS) 2 bags added to field was administered by Chito Clayton MD; used for procedure; 7:41:33 Rhythm: sinus rhythm 7:41:46 H&P Date Dictated: 09/14/2018 Within 30 days and on chart., H&P Addendum completed by physician on day of procedure. (MUST COMPLETE FOR ALL OUTPATIENTS). 7:41:47 Pre-procedure instructions explained to patient. 7:41:49 Pre-op teaching completed and patient verbalized understanding. 7:42:00 Family in waiting room. 7:42:03 Patient NPO since Midnight. 7:42:47 Patient allergic to Other allergyStatins, Amlodipine, Valium, Levequin, Nirofurantoin, actonel 7:42:58 Is the patient allergic to Iodine/contrast media? No. 7:43:00 Is patient on blood thinner?Yes 7:43:03 Patient diabetic? No. 7:43:11 Previous problem with sedation/anesthesia? No ? 7:43:13 Snore? Yes 7:43:19 Sleep apnea? No 7:43:20 Deviated septum? No 7:43:21 Opens mouth fully? Yes 7:43:21 Sticks out tongue? Yes 7:43:23 Airway obstruction? No ? 7:43:25 Dentures? No ? 7:43:39 Pre procedure: right dorsailis pedis pulse 1+ Palpable, but thready & weak; easily obliterated 7:43:41 Patient pain scale 0/10 ?. 7:43:44 IV patent on arrival in left forearm with 0.[facility]. 7:48:07 Lab Result : BUN 13 mg/dl 7:48:07 Lab Result : Creatinine 0.7 mg/dl 7:48:07 Lab Result : Hemoglobin 8.4 g/dl 7:48:07 Lab Result : Hematocrit 27.2 % 7:48:10 Lab results completed and on chart. 7:48:55 Right groin area was prepped with chlora-prep and draped in sterile fashion 7:48:56 Alarms reviewed by R. N. 7:48:56 Sharps counted by scrub and verified by R.N. 7:48:59 Use device set Femoral Dx 7:49:00 ACIST Syringe (33974) opened to sterile field. 7:49:01 Bag Decanter (2002S) opened to sterile field. 7:49:01 Medline Cath Pack ([id number]) opened to sterile field. 7:49:02 ACIST Hand Control (37944) opened to sterile field. 7:49:02 ACIST Manifold (31876) opened to sterile field. 7:49:03 Tegaderm 4 x 4 (1626W) opened to sterile field. 7:49:04 SHEATH 5FR Paxton ([id number]) opened to sterile field. 7:49:05 DIAGNOSTIC WIRE .035 260cm J wire (974313) opened to sterile field. 7:49:06 DIAGNOSTIC Multipack 5Fr catheter set ([id number]) opened to sterile field. 7:50:33 Zero performed for pressure channel P1 7:52:26 Physician arrived 7:52:26 --------ALL STOP TIME OUT------ 7:52:27 Final Timeout: patient, procedure, and site verified with staff and physician. All members of the team are in agreement. 7:52:28 Right groin site verified by team. 7:52:31 Fire Safety Assessment: A--An alcohol-based skin anteseptic being used preoperatively., C--Open oxygen or nitrous oxide is being used., D--An ESU, laser, or fiber-optic light is being used. 7:52:34 Physical assessment completed. ASA score P 2 - A patient with mild systemic disease as per Chito Clayton MD. 7:52:37 Sedation plan: IV Moderate Sedation Medication:Versed, Fentanyl 7:53:06 ACC The patient was administered the following blood thiners within the last 24 hours: ACCPlavix 7:53:15 Versed 2 mg I.V. was administered by Lorena Batista RN; for sedation; 7:53:21 Fentanyl 50 mcg I.V. was administered by Lorena Batista RN; for sedation; 7:58:12 Versed 1 mg I.V. was administered by Lorena Batista RN; for sedation; 7:58:24 Fentanyl 25 mcg I.V. was administered by Lorena Batista RN; for sedation; 7:58:41 Procedure started. 7:58:43 Local anesthetic to right femoral artery with Lidocaine 2% by Chito Clayton MD.INITIAL ACCESS ONLY 8:00:00 A 5 Fr sheath was inserted into the Right Femoral artery 8:02:28 A MULTIPACK JL 4.0 5Fr catheter was advanced over the wire and used for Procedure. 8:03:19 LCA angiography performed. 8:03:36 Catheter exchanged over wire. 8:03:40 A DIAGNOSTIC AR MOD 5Fr Catheter ([id number]) was advanced over the wire and used for Procedure. 8:04:58 RCA angiography performed. 8:05:32 SVG to RCA angiography performed. 8:06:41 SVG to Diag angiography performed. 8:06:56 Catheter exchanged over wire. 8:07:02 A DIAGNOSTIC IM 5Fr catheter ([id number]) was advanced over the wire and used for Procedure. 8:08:52 SHIPLEY to LAD angiography performed. 8:09:33 Catheter exchanged over wire. 8:09:39 A MULTIPACK Pigtail 5 Fr catheter was advanced over the wire and used for Procedure. 8:10:25 LV gram done using [place] 8:10:27 Injector settings: Ml/sec: 10, Volume: 20, 8:10:29 LV hemodynamics recorded. 8:10:41 EF : 60 % 8:11:10 Catheter exchanged over wire. 8:11:13 EXOSEAL 5Fr (EX500) opened to sterile field. 8:12:05 Sheath removed intact; hemostasis achieved with Exoseal to the Right Femoral artery. 8:12:06 Procedure ended.(Physican Out) 8:12:13 Fluoroscopy time 03.00 minutes. 8:12:41 Fluoroscopy dose: 499 mGy 8:12:41 Flurop Dose total: 499 8:12:45 Contrast amount:Isovue 300 91ml. 8:14:05 Sharps counted by scrub and verified by R.N. 8:14:08 Insertion/operative site no bleeding no hematoma. 8:14:11 Post-op/insertion site Right Femoral artery dressed using a 4 x 4 and Tegaderm. 8:14:16 Post right femoral artery:stable, soft, clean and dry 8:15:30 Post Procedure Pulses reassessed and unchanged 8:15:35 Post-procedure physical assessment completed. ASA score P 2 - A patient with mild systemic disease as per Chito Clayton MD. 8:15:37 Post procedure rhythm: unchanged. 8:15:39 Estimated blood loss: 5 ml 8:15:41 Post procedure instruction explained to patient.Patient verbalizes understanding. 8:15:42 Patient needs reinforcement of post procedure teaching. 8:16:03 Procedure type changed to Cath procedure, Diagnostic procedure, LHC, LHC w/Coronaries w/Grafts, Sedation Charges, Moderate Sedation up to 15 minutes 8:16:51 Procedure and supply charges have been captured, reviewed, submitted and are correct. 8:16:53 Procedure Complication : No complications 8:16:55 Vital chart was stopped 8:16:55 See physician's report for complete and final results. 8:16:56 Report given to Pre/Post Procedure Room. 8:16:59 Patient transfered to Pre/Post Procedure Room with Stretcher. 8:17:01 Procedure ended. 8:17:01 Full Disclosure recording stopped 8:17:06 End room use (Document Last) Device Usage Item Name Manufacture Quantity Catalog Hospital Part Current Minimal L ot# / Number Charge Number Stock Stock Serial# Code ACIST Acist 1 61745 359165 546334 796109 20 Syringe Medical (28228) Systems Inc Bag Microtek 1 2001S 010547 93104 917593 5 Decanter Medical Inc. () Medline Medline 1 [id number] 177242 38455 438859 5 Cath Pack ([id number]) ACIST Hand Acist 1 35206 371293 382160 814691 5 Control Medical (65898) Systems Inc ACIST Acist 1 01155 083250 117588 281960 5 Manifold Medical (08567) Systems Inc Tegaderm 4 3M 1 1626W 603684 999794 764584 5 x 4 (1626W) SHEATH 5FR Terumo 1 [id number] 661588 283522 946421 5 Paxton (BIN403) DIAGNOSTIC [facility] 1 096095 794299 345158 026345 30 WIRE .035 260cm J wire (632750) DIAGNOSTIC Cardinal 1 KR0062 936061 61442 360918 30 Multipack Health 5Fr catheter set (EP2541) MULTIPACK Cardinal 1 847042 5 JL 4.0 5Fr Health catheter DIAGNOSTIC Cardinal 1 [id number] 580650 629895 179936 15 AR MOD 5Fr Health Catheter (673458U) DIAGNOSTIC Cardinal 1 [id number] 586999 202084 591174 5 IM 5Fr Health catheter (600139R) MULTIPACK Cardinal 1 617039 5 Pigtail 5 Health Fr catheter EXOSEAL 5Fr Cardinal 1 EX500 751653 270657 282435 10 (EX500) Health Signature Audit [place] Stage Time Signature Unsigned Intra-Procedure 09/24/2018 Dane Lechuga 8:17:34 AM RT(R) Signatures Monitor : Dane Lechuga RT Signature : Date : Time : [facility] [address] [facility] [place] [address]
[~2018-09-24 06:11] MED LIST changes: -CILOSTAZOL100 MG PO; -TOPROL XL50 MG PO
[2018-09-24] MEDS ORDERED: TOPROL XL50 MG PO (06:30)
[2018-09-24] MEDS ORDERED: CILOSTAZOL100 MG PO (06:32)
[2018-09-24 06:43] VITALS: BP 126/52; Ht 157.5 cm; Wt 72.7 kg
[2018-09-24 07:16] LABS: CALC OSMOLALITY 269 mosm/kg (275-300); CALCIUM 8.6 mg/dL (8.5-10.1); CARBON DIOXIDE 25.6 mmol/L (21.0-32.0); CHLORIDE - SERUM 99 mmol/L (98-107); CREATININE - SERUM 0.7 mg/dL (0.6-1.3); GLUCOSE 104 mg/dL (74-106); POTASSIUM - SERUM 4.3 mmol/L (3.5-5.1); SODIUM 135 mmol/L (136-145); UREA NITROGEN 13 mg/dL (7-18); eGFR NON AFRICAN AMERICAN 85 mL/min (90-120)
[2018-09-24 07:21] LABS: BASOPHILS 0.9 % (0-2); EOSINOPHILS 1.7 % (0-7); HEMATOCRIT 27.2 % (36.0-48.0); HEMOGLOBIN 8.4 g/dL (12-16); IMMATURE GRANULOCYTES 0.3 % (0-5); LYMPHOCYTES 14.3 % (15-50); MCH 24.6 pg (26.0-34.0); MCHC 30.9 g/dL (31.0-37.0); MCV 79.8 fL (80.0-100.0); MONOCYTES 11.3 % (2-11); NEUTROPHILS 71.5 % (40-80); PLATELET COUNT 410 10x3/uL (130-400); RBC 3.41 10x6/uL (4.00-5.40); RDW 14.1 % (11.5-14.5); WBC 8.8 10x3/uL (4.8-10.8)
--- NOTE | 2018-09-24 08:45 | NUR ---
2L NC, NO RESP DISTRESS. RIGHT GROIN 6F EXOSEAL CDI, NO BLEEDING OR HEMATOMA NOTED. NO C/O PAIN OR NAUSEA. VSS. FAMILY AT BEDSIDE, CALL LIGHT WITHIN REACH.
--- NOTE | 2018-09-24 09:15 | NUR ---
RESTING QUIETLY WITH EYES CLOSED. RIGHT GROIN 5F EXOSEAL CDI, NO BLEEDING OR HEMATOMA NOTED. DENIES ANY NEEDS. VSS. WILL CONTINUE TO MONITOR.
--- NOTE | 2018-09-24 09:40 | NUR ---
VOIDED 50CC ONTO BEDPAN. HOB ELEVATED 30 DEGREES. SIPPING ON DRINK AND EATING SANDWICH WITH NO C/O NAUSEA. RIGHT GROIN 5F EXOSEAL CDI, NO BLEEDING OR HEMATOMA NOTED. VSS. WILL CONTINUE TO MONITOR.
--- NOTE | 2018-09-24 10:25 | NUR ---
LEFT PIV D/C'D WITH CATHETER INTACT, BAND AID TO SITE. UP TO BEDSIDE TO GET DRESSED.
--- NOTE | 2018-09-24 10:32 | NUR ---
DISCHARGE INSTRUCTIONS GIVEN, VERBALIZED UNDERSTANDING.
--- NOTE | 2018-09-24 10:45 | NUR ---
TAKEN OUT VIA WHEELCHAIR BY CATH NURSING CLINICAL DIRECTOR. LEFT FACILITY WITH FAMILY AND ALL PERSONAL BELONGINGS.
== END 2018-09-24 10:45 | disposition home or self-care (01) ==
LOC: D.CATH 06:11
PROVIDERS: Internal Medicine Cardiovascular Disease
DX: I20.9 Angina pectoris, unspecified (principal); Z95.1 Presence of aortocoronary bypass graft; Z01.812 Encounter for preprocedural laboratory examination

== ENCOUNTER 2018-10-09 16:34 | Inpatient (IN) | payer MEDICARE, OTHER ==
[~2018-10-09] VITALS: Ht 157.5 cm; Wt 73.2 kg
[~2018-10-09 16:34] MED LIST changes: +CILOSTAZOL100 MG PO; +FAMOTIDINE10 MG PO; +TOPROL XL50 MG PO
--- NOTE | 2018-10-09 17:57 | NUR ---
PAGED DR ROSS AT 174, HE RETURNED THE CALL AT 174. HE WAS INFORMED OF THE CONSULT AND THE CONCERN FOR THE LONGEVITY OF THE PLAVIX, HE GAVE A VERBAL ORDER TO DISCONTINUE THE PLAVIX.
--- NOTE | 2018-10-09 17:59 | NUR ---
DR COLON CALLED AND INQUIRED ABOUT THE PATIENT, HE STATED HE WILL SEE THE PATIENT TOMORROW
[2018-10-09 18:09] LABS: BASOPHILS 1.1 % (0-2); EOSINOPHILS 2.6 % (0-7); IMMATURE GRANULOCYTES 0.3 % (0-5); LYMPHOCYTES 26.1 % (15-50); MCH 23.9 pg (26.0-34.0); MCHC 29.6 g/dL (31.0-37.0); MCV 80.7 fL (80.0-100.0); MEAN PLATELET VOLUME 8.7 fL (7.4-10.4); MONOCYTES 13.8 % (2-11); NEUTROPHILS 56.1 % (40-80); PLATELET COUNT 394 10x3/uL (130-400); RBC 2.43 10x6/uL (4.00-5.40); RDW 15.7 % (11.5-14.5); WBC 6.2 10x3/uL (4.8-10.8)
[2018-10-09 18:16] VITALS: BP 152/44; BMI 29.5
[2018-10-09 18:23] LABS: CALC OSMOLALITY 275 mosm/kg (275-300); CALCIUM 8.1 mg/dL (8.5-10.1); CARBON DIOXIDE 23.7 mmol/L (21.0-32.0); CHLORIDE - SERUM 102 mmol/L (98-107); CREATININE - SERUM 0.6 mg/dL (0.6-1.3); GLUCOSE 83 mg/dL (74-106); POTASSIUM - SERUM 4.3 mmol/L (3.5-5.1); SODIUM 138 mmol/L (136-145); UREA NITROGEN 14 mg/dL (7-18); eGFR NON AFRICAN AMERICAN > 90 mL/min (90-120)
[2018-10-09 18:37] VITALS: Ht 157.5 cm; Wt 73.2 kg
[2018-10-09 18:37] LABS: HEMATOCRIT 19.6 % (36.0-48.0); HEMOGLOBIN 5.8 g/dL (12-16)
--- NOTE | 2018-10-09 19:19 | NUR ---
CALLED LAB ABOUT BLOOD. BLOOD NOT READY
--- NOTE | 2018-10-09 19:27 | NUR ---
GREETED PATIENT AND INTRODUCED MYSELF HER NURSE FOR THE EVENING. PATIENT IS LAYING IN BED IN SUPINE POSITION. FAMILY MEMBER AT BEDSIDE. PATIENT STATES THAT SHE HAS NO PAIN. DENIES ANY FURTHER NEEDS AT THIS TIME. CALL LIGHT IN REACH.
[2018-10-09 20:00] VITALS: BP 145/42
--- NOTE | 2018-10-09 20:05 | NUR ---
OBTAINED BLOOD CONSENT. PT IS AAO, GOT BLOOD FROM BLOOD BANK. PT VERBALIZED UNDERSTANDING OF BLOOD DENIES ANY QUESTIONS OR CONCERNS. WILL CPOC
--- NOTE | 2018-10-09 20:15 | NUR ---
STARTED FIRST UNIT PRBC. STARTING VITALS - T-97.6, P-65, RR-18, BP 142/52. WCTM.
[2018-10-09 20:21] VITALS: BP 142/52
--- NOTE | 2018-10-09 22:22 | NUR ---
PT UP TO BR WITH ASSISTANCE, VOIDED 600 MLS OF CLEAR YELLOW URINE BY SELF WITH NO DIFFICULTY, PT BACK TO BED, DENIES FURTHER NEEDS OR PAIN AT THIS TIME, BED IN LOW POSITION, SIDE RAILS X 2, CALL LIGHT IN REACH
--- NOTE | 2018-10-09 22:47 | NUR ---
FIRST UNIT OF PRBC COMPLETED. VITAL SIGNS - T-98.1, P-61, RR-18, BP 151/48. PATIENT TOLERATED PROCEDURE. WCTM.
--- NOTE | 2018-10-09 23:23 | NUR ---
PATIENT HAS SLIGHT REDDENED AREA ON RIGHT ARM AT BICEP AREA. NO PAIN ASSOCIATED. WCTM. STARTING SECOND UNIT OF PRBC. VITALS BP 159/58, P 64, RR-18, T-97.8.
--- NOTE | 2018-10-09 23:56 | NUR ---
PT HAS A SMALL AMOUNT OF REDNESS ON RIGHT ARM, NOT BY IV SITE, AND STATES HAND IS TINGLING. CALLED DAY FROM MED 2 AND JAD FROM LAB. BOTH STATED IT IS NOT A REACTION. WILL SPEAK WITH PAVAN ESPARZA AND ANAYA
[2018-10-10] VITALS (7 sets, daily range): BP systolic 123–168; BP diastolic 49–72
--- NOTE | 2018-10-10 00:23 | NUR ---
PATIENT RESTING QUIETLY WITH 2ND UNIT OF PRBC INFUSING. PATIENT DENIES ANY NEEDS AT THIS TIME. CALL LIGHT IN REACH. TM.
--- NOTE | 2018-10-10 01:10 | NUR ---
REDDENED AREA ON RIGHT ARM HAS RESOLVED. WCTM.
--- NOTE | 2018-10-10 01:37 | NUR ---
2ND INFUSION OF PRBC COMPLETED. VITALS - T-97.7, P-64, RR-18, BP-152-49. WCTM. PATIENT DENIES ANY NEEDS AT THIS TIME. CALL LIGHT IN REACH.
[2018-10-10 02:35] LABS: EOSINOPHILS 3.2 % (0-7); IMMATURE GRANULOCYTES 0.5 % (0-5); LYMPHOCYTES 25.1 % (15-50); MCH 26.1 pg (26.0-34.0); MCHC 31.9 g/dL (31.0-37.0); MCV 81.8 fL (80.0-100.0); MEAN PLATELET VOLUME 9.2 fL (7.4-10.4); MONOCYTES 14.1 % (2-11); NEUTROPHILS 56.1 % (40-80); PLATELET COUNT 361 10x3/uL (130-400); RDW 15.2 % (11.5-14.5)
--- NOTE | 2018-10-10 02:37 | NUR ---
PATIENTS ONE HOUR POST OP VITALS. T-98.4, P-72, RR-17, BP 155/57.
[2018-10-10 02:38] LABS: HEMOGLOBIN 8.3 g/dL (12-16); RBC 3.18 10x6/uL (4.00-5.40)
[2018-10-10 02:45] LABS: CALC OSMOLALITY 273 mosm/kg (275-300); CALCIUM 8.1 mg/dL (8.5-10.1); CARBON DIOXIDE 23.5 mmol/L (21.0-32.0); CHLORIDE - SERUM 104 mmol/L (98-107); CREATININE - SERUM 0.7 mg/dL (0.6-1.3); GLUCOSE 87 mg/dL (74-106); POTASSIUM - SERUM 4.1 mmol/L (3.5-5.1); SODIUM 138 mmol/L (136-145); UREA NITROGEN 10 mg/dL (7-18); eGFR NON AFRICAN AMERICAN 85 mL/min (90-120)
--- NOTE | 2018-10-10 03:55 | NUR ---
PATIENT ASLEEP WITH EYES CLOSED LAYING IN SUPINE POSITION. HOB AT 30 DEGREES. RESPIRATIONS EVEN. NO S/S OF DISTRESS. CALL LIGHT IN REACH.
--- NOTE | 2018-10-10 05:35 | NUR ---
PATIENT ASLEEP WITH EYES CLOSED LAYING IN SUPINE POSITION. HOB AT 30 DEGREES. RESPIRATIONS EVEN. NO S/S OF DISTRESS. CALL LIGHT IN REACH.
--- NOTE | 2018-10-10 07:30 | NUR ---
ASSESSMENT COMPLETE. IV TO R AC PATENT. NS INFUSING AT 40 CC/HR VIA PUMP. COMPOSITION WEATHERBOARD APPLIER SHOWIING SB 55 PER TECH. DENIES ANY NEEDS AT THIS TIME.
--- NOTE | 2018-10-10 09:00 | NUR ---
SCD'S IN USE TO BILAT LEGS.
--- NOTE | 2018-10-10 10:46 | NUR ---
VISITING WITH FAMILY. NO CHANGES NOTED AT THIS TIME.
[2018-10-10 13:10] LABS: HEMATOCRIT 28.2 % (36.0-48.0); HEMOGLOBIN 8.9 g/dL (12-16)
--- NOTE | 2018-10-10 17:04 | NUR ---
DENIES ANY NEEDS AT THIS TIME.
[2018-10-10 18:41] LABS: HEMATOCRIT 26.9 % (36.0-48.0); HEMOGLOBIN 8.4 g/dL (12-16)
--- NOTE | 2018-10-10 19:05 | NUR ---
PT ALERT AND ORIENTED. AT BEDSIDE. ASSISTED PT TO BATHROOM AND WITH BRUSHING TEETH. ASSISTED PT BACK TO BED. STATES HE IS GOING HOME FOR THE EVENING. PT DENIES NEEDS AT THIS TIME. CALL LIGHT IN REACH. CPOC.
--- NOTE | 2018-10-10 20:44 | NUR ---
VITALS ASSESED AND CHARTED. HS MEDICATIONS GIVEN AND TOLERATED. PT IV PATENT IN RIGHT AC--TOP OF AC. SCD'S ON. SECURITY INSPECTOR ON. DENIES FURTHER NEEDS. WATCHING TV. CALL LIGHT IN HAND.
--- NOTE | 2018-10-10 23:50 | NUR ---
I AGREE WITH THE SAND PLANT ATTENDANT ASSESSMENT CHARTED THIS SHIFT.
[2018-10-11 04:04] VITALS: BP 138/65
--- NOTE | 2018-10-11 04:12 | NUR ---
ASSISTED PT TO BATHROOM. NO COMPLAINTS. DENIES FUTHER CARE AT THIS TIME. VITALS ASSESSED AND IN FLOWSHEET. CALL LIGHT IN HAND.
--- NOTE | 2018-10-11 07:15 | NUR ---
PT RESTING IN BED, EYES OPEN. PT ALERT AND ORIENTED. UP WITH ASSIST. SCDS PRESENT AND ON. IV TO RIGHT AC, NS INFUSING @ 40. SITE PATENT WITHOUT REDNESS OR SWELLING. NO C/O PAIN. NO S/S OF ACUTE DISTRESS NOTED. PT ON TELEMETRY, 63 SR WITH PVC'S AND ELEVATED T-WAVE. PT DENIES ANYTHING FURTHER AT THIS TIME. CALL LIGHT IN REACH. WILL CONTINUE TO MONITOR.
[2018-10-11 07:26] LABS: BASOPHILS 0.7 % (0-2); EOSINOPHILS 2.7 % (0-7); HEMATOCRIT 28.3 % (36.0-48.0); HEMOGLOBIN 8.8 g/dL (12-16); IMMATURE GRANULOCYTES 0.3 % (0-5); LYMPHOCYTES 18.6 % (15-50); MCH 25.8 pg (26.0-34.0); MCHC 31.1 g/dL (31.0-37.0); MEAN PLATELET VOLUME 8.8 fL (7.4-10.4); MONOCYTES 13.4 % (2-11); NEUTROPHILS 64.3 % (40-80); PLATELET COUNT 359 10x3/uL (130-400); RBC 3.41 10x6/uL (4.00-5.40); RDW 15.7 % (11.5-14.5); WBC 6.8 10x3/uL (4.8-10.8)
[2018-10-11 07:35] LABS: CALC OSMOLALITY 273 mosm/kg (275-300); CALCIUM 7.9 mg/dL (8.5-10.1); CARBON DIOXIDE 24.2 mmol/L (21.0-32.0); CHLORIDE - SERUM 104 mmol/L (98-107); CREATININE - SERUM 0.7 mg/dL (0.6-1.3); GLUCOSE 85 mg/dL (74-106); POTASSIUM - SERUM 4.2 mmol/L (3.5-5.1); SODIUM 138 mmol/L (136-145); UREA NITROGEN 9 mg/dL (7-18); eGFR NON AFRICAN AMERICAN 85 mL/min (90-120)
[2018-10-11 08:00] VITALS: BP 164/63
[2018-10-11 10:44] VITALS: BP 166/63
--- NOTE | 2018-10-11 14:10 | NUR ---
INFUSING I UNIT OF PRBC. VITALS STABLE. NO C/O PAIN. NO S/S OF ACUTE DISTRESS NOTED.
[2018-10-11 18:26] VITALS: BP 144/56
--- NOTE | 2018-10-11 18:53 | NUR ---
PT RESTING IN BED, EYES OPEN. AT BEDSIDE. NO C/O PAIN. NO S/S OF ACUTE DISTRESS NOTED. PT RECEIVING 2ND UNIT OF PRBC. VITALS STABLE. PT DENIES ANYTHING FURTHER AT THIS TIME. CALL LIGHT IN REACH. WILL CONTINUE TO MONITOR.
--- NOTE | 2018-10-11 18:57 | NUR ---
I have reviewed this patient and I concur with the Shift Assessment completed by the Licensed Practical Nurse today this shift.
--- NOTE | 2018-10-11 19:03 | NUR ---
I have reviewed this patient and I concur with the Shift Assessment completed by the Licensed Practical Nurse today this shift.
--- NOTE | 2018-10-11 19:44 | NUR ---
RECIEVED BEDSIDE REPORT. VSS, AAOX4, PT CURRENTLY RECIEVING BLOOD AT THIS TIME. NO S/S OF DISTRESS, RR EVEN AND UNLABORED. AT BEDSIDE. PT DENIES ANY NEEDS AT THIS TIME. WILL CTM VS. CL IN REACH, BED IN LOW, SR UP X2.
[2018-10-11 20:01] VITALS: BP 126/51
--- NOTE | 2018-10-11 20:35 | NUR ---
PT COMPLETED PRBCS. POST TRANSFUSION VS; T 98.0, P 59, RR 18, BP 137/54. NO S/S OF DISTRESS. RESTARTED PT NS @ 40MLS/HR. PT DENIES ANY FURTHER NEEDS AT THIS TIME. WILL CTM. CL IN REACH, BED IN LOW, SR UP X2.
[2018-10-12 01:03] VITALS: BP 154/57
[2018-10-12 04:00] VITALS: BP 150/47
--- NOTE | 2018-10-12 07:40 | NUR ---
PT REPORTS THAT HER IV IS LEAKING. UPON ASSESSMENT, PIV WAS INFILTRATED. REMOVED PIV TO PT RIGHT AC WITH CATHETER TIP INTACT. RESITED 20G PIV TO PT LEFT FA X1 ATTEMPT. PT RECONNECTED TO NS ORDERED. NO COMPLICATIONS NOTED AT THIS TIME. SHIFT ASSESSMENT PERFORMED. CALL LIGHT WITHIN REACH, DENIES PAIN AT THIS TIME, DENIES ANY OTHER NEEDS AT THIS TIME. WILL CONT TO FOLLOW PLAN OF CARE
[2018-10-12 07:54] VITALS: BP 181/74
[2018-10-12 10:11] LABS: BASOPHILS 0.7 % (0-2); EOSINOPHILS 3.1 % (0-7); HEMATOCRIT 33.5 % (36.0-48.0); HEMOGLOBIN 10.5 g/dL (12-16); IMMATURE GRANULOCYTES 0.3 % (0-5); LYMPHOCYTES 16.8 % (15-50); MCH 26.3 pg (26.0-34.0); MCHC 31.3 g/dL (31.0-37.0); MCV 83.8 fL (80.0-100.0); MONOCYTES 9.7 % (2-11); NEUTROPHILS 69.4 % (40-80); PLATELET COUNT 334 10x3/uL (130-400); WBC 7.2 10x3/uL (4.8-10.8)
--- NOTE | 2018-10-12 10:54 | EC ---
PATIENT:EMILY RÍOS DATE OF SERVICE: 10/09/18 SEX: F MEDICAL RECORD: [id number] DATE OF : 36 LOCATION:D.M3 D.120 AGE OF PATIENT: 83 ADMISSION DATE: 10/09/18 REFERRING PHYSICIAN: INTERPRETING PHYSICIAN: PATRICIA GARY MD ECHOCARDIOGRAM REPORT ECHO CHARGES 4 ECHO COMPLETE Date: 10/10/18 CLINICAL DIAGNOSIS: MURMUR ECHOCARDIOGRAPHIC MEASUREMENTS (adult normal given) AC root (d.<3.7cm) 2.6 cm LV Septum d (<1.2 cm> 1.2 cm Valve Excursion 1.5 cm LV Septum (systole) 1.3 cm Left Atria (s.<4.0cm> 4.6 cm LVPW d(<1.2cm) 1.4 cm RV (d.<2.3cm) 2.9 cm LVPW (sytole) 1.8 cm LV diastole(<5.6CM) 5.0 cm MV E-F(>70mm/sec) cm LV systole 3.1 cm LVOT Diameter 1.9 cm MV exc.(>10mm) cm Est.ejection fraction (50-75%) % DOPPLER: LVIT cm/sec A 108 cm/sec E 59 cm/sec LA cm/sec RVSP 33.0 mmHg LVOT 138 cm/sec AOP1/2T m/s Asc. Ao 180 cm/sec RVOT 92 cm/sec RA cm/sec PA 84 cm/sec AV Gradient Peak 13.0 mmHg AV Mean 5.1 mmHg AV Area 2.1 cm MV Gradient Peak 6.7 mmHg MV Mean 3.2 mmHg MV Area cm COMMENTS: Casting Repairer: Zehra WATTERS Gum Machine Operator: 1 Dr. Gary TAPE# PACS Pericardial Effusion N DATE OF SERVICE: 10/10/2018 FINDINGS: 1. Left ventricular chamber size is within normal limits. Left ventricular systolic function is normal. Overall ejection fraction is estimated at 60%. 2. Left atrium is enlarged at 4.6 cm. Right atrium and right ventricle chamber sizes are as well mildly dilated. 3. Valvular structures have normal structure and motion. 4. Doppler interrogation reveals severe mitral regurgitation and mild tricuspid regurgitation. No other valvular insufficiency or stenosis. Pulmonary systolic ECHOCARDIOGRAM REPORT [id number] EMILY RÍOS E pressure is estimated at 33 mmHg. 5. No evidence of pericardial effusion or left ventricular thrombus. 6. The patient was in and out of atrial fibrillation during the study. TRANSINT:[id number] Voice Confirmation ID: [id number] DOCUMENT ID: [id number] PATRICIA GARY MD at 1054 CC: [id number] DICTATION DATE: 10/11/18 1150 ANTENNA RIGGER: 10/11/18 1238 ADM IN [place] [id number] [place] [address]
--- NOTE | 2018-10-12 10:55 | CN ---
PATIENT NAME:EMILY RÍOS MEDICAL RECORD: [id number] : 37 LOCATION:D.M3 D.1208 ADMIT DATE: 10/09/18 ACCOUNT: [id number] CONSULTING PHYSICIAN: PATRICIA ROSS MD REFERRING PHYSICIAN: SERGEY JENSEN MD DATE OF CONSULTATION: 10/10/2018 DIAGNOSES: 1. GI bleed. 2. Plavix anticoagulation. 3. Coronary artery disease. 4. Previous PTCA and stent. 5. Previous coronary bypass graft surgery. 6. Shortness of breath and dyspnea on exertion. 7. Murmur. 8. Hypertension. 9. GERD. 10. Hyperlipidemia. HISTORY: Mrs. Ríos presents with shortness of breath and dyspnea on exertion, found to be anemic, possibly from GI source. She is undergoing a workup for GI bleeding. She does have a history of PTCA and stent, but the last one was in April. She had angiogram this year revealing wide patency of graft and wide patency of stents. No new stents were placed, hence last stent was placed in 2016. She is short of breath and has dyspnea on exertion. This has possibly been attributed to the anemia. She as well has a murmur. She has not had evaluation of her valvular structures in quite some time. PHYSICAL EXAMINATION: GENERAL APPEARANCE: Well-nourished, well-developed, appears stated age. Level of distress, comfortable. PSYCHIATRIC: Mental status, alert, normal affect. Orientation, oriented to time, place and person. EYES: Lids and conjunctiva, noninjected. No discharge, no pallor. ENT: Lips, teeth, gums, normal dentition. Oropharynx, no cyanosis, no pallor. NECK: Carotid arteries, bilateral normal upstroke, no bruits, no thrills. JUGULAR VEINS: No jugular venous pressure or distention. CERVICAL LYMPH NODES: Nontender, nonenlarged. THYROID: Not enlarged. Nontender. No nodules. LUNGS: Respiratory effort, unlabored. CHEST: Normal curvature. No thoracic deformity. No chest wall tenderness. Percussion, resonant. Auscultation, clear. No wheezes, no rales, no rhonchi. CARDIOVASCULAR: Precordial exam, nondisplaced. No heaves or pericardial thrills. Rate and rhythm, regular. Heart sounds, normal S1, normal S2. No S3, no gallop, no rub. Systolic murmur, not heard. Diastolic murmur, not heard. EXTREMITIES: No cyanosis, no edema. Peripheral pulses, full and equal in all extremities, except as noted. No bruits appreciated. ABDOMEN: Soft, nondistended. Normal aorta. No bruit. Nontender. No masses. Liver, nontender, no hepatomegaly. Spleen, nontender, no splenomegaly. MUSCULOSKELETAL: No joint tenderness. No joint swelling. No erythema. NEUROLOGICAL: Normal gait, normal strength, normal tone. SKIN: Warm and dry. OVERALL IMPRESSION: Safe to stop the Plavix at this time with no plans to restart it any in the near future. We will get echocardiogram for the murmur. CONSULT REPORT [id number] EMILY RÍOS TRANSINT:[id number] Voice Confirmation ID: [id number] DOCUMENT ID: [id number] PATRICIA ROSS MD at 1055 CC: [id number] DICTATION DATE: 10/10/18 1148 MEDICAID SERVICE COORDINATOR: 10/10/18 1309 ADM IN [place] [address] [place] [address]
[2018-10-12 11:17] VITALS: BP 158/70
--- NOTE | 2018-10-12 12:57 | NUR ---
PAGED FOR A 3RD TIME AND NO RESPONSE. CALLED HER OFFICE AND SHE WAS UNAWARE FOR THE "PLANNED" EGD TODAY. PT CAN NOW EAT AND WILL PLAN FOR EGD WITH TIVA TOMORROW AM IN GI LAB. DISCUSSED WITH PT, PRIMARY NURSE AND NOTIFIED . PTS AGITATED BUT UNDERSTANDS. NO CURRENT NEEDS. WILL CTM.
[2018-10-12 15:28] VITALS: BP 159/55
--- NOTE | 2018-10-12 20:16 | NUR ---
SIT UP IN BED AND WATCH TV.
[2018-10-12 21:01] VITALS: BP 162/69
[2018-10-13 02:03] VITALS: BP 148/56
--- NOTE | 2018-10-13 02:24 | NUR ---
REST QUIELTY IN BED, RESP EVEN, NO DISTRESS, CALL LIGHT IN REACH.
--- NOTE | 2018-10-13 04:44 | NUR ---
I have reviewed this patient and I concur with the Shift Assessment completed by the Licensed Practical Nurse today this shift.
--- NOTE | 2018-10-13 07:15 | NUR ---
PT RESTING IN BED, EYES OPEN. AT BEDSIDE. PT ALERT AND ORIENTED. UP AD JEAN-CLAUDE WITH STANDBY. SCHEDULED FOR EGD THIS AM. PT NPO. SCDS PRESENT, NOT ON. IV TO LEFT FOREARM, SL. SITE PATENT WITHOUT REDNESS OR SWELLING. PT ON TELEMETRY SR. PT DENIES ANYTHING FURTHER AT THIS TIME. CALL LIGHT IN REACH. WILL CONTINUE TO MONITOR.
[2018-10-13] MEDS ORDERED: CARAFATE1 G PO (08:18)
[2018-10-13] MEDS ORDERED: PROTONIX40 MG PO (08:18)
[2018-10-13] MEDS ORDERED: PEPCID40 MG PO (08:19)
--- NOTE | 2018-10-13 10:40 | MORECARE ---
CASE MANAGEMENT DISCHARGE SUMMARY PATIENT: EMILY RÍOS UNIT: [id number] ADM DATE: 10/09/18 AGE: 83 : 36 SEX: F ROOM/BED: D.1208 AUTHOR: TIFFANIE MITCHELL PHYSICIAN: REFERRING PHYSICIAN: SERGEY JENSEN MD DATE OF SERVICE: 10/13/18 Discharge Plan Patient Name: EMILY RÍOS [facility] [facility] 1935 Planned Disposition: Home Anticipated Discharge Date: 10/13/18 Discharge Date: Expected LOS: 4 Initial Reviewer: [email or web address] Initial Review Date: 10/13/2018 Generated: 10/13/18 11:40 am DCPIA - Discharge Planning Initial Assessment Updated by [email or web address]: Lilli Valentino on 10/13/18 10:39 am * Is the patient Alert and Oriented? Yes * How many steps to enter\exit or inside your home? * PCP Dr. Jensen * Pharmacy [facility] * Preadmission Environment Home with Family * ADLs Independent * Equipment None * List name and contact numbers for known caregivers / representatives who currently or will assist patient after discharge: Dany Ríos, Spouse, * Verbal permission to speak to the caregivers and representatives has been obtained from the patient. Yes * Community resources currently utilized None * Additional services required to return to the preadmission environment? No * Can the patient safely return to the preadmission environment? Yes * Has this patient been hospitalized within the prior 30 days at any hospital? No Patient Name: EMILY RÍOS Page [phone] at 1040 All edits/amendments must be made on the electronic document DICTATION DATE: 10/13/18 1040 ACCOUNTANT BUDGET: CINDY 10/13/18 1040 RPT#: [id number] DC DATE: STATUS: ADM IN [facility] [address] [place] [address] END OF REPORT
--- NOTE | 2018-10-13 10:49 | MORECARE ---
CASE MANAGEMENT DISCHARGE SUMMARY PATIENT: EMILY RÍOS UNIT: [id number] ADM DATE: 10/09/18 AGE: 83 : 36 SEX: F ROOM/BED: D.1208 AUTHOR: STEPHEN,DOC PHYSICIAN: REFERRING PHYSICIAN: SERGEY JENSEN MD DATE OF SERVICE: 10/13/18 Discharge Plan Patient Name: EMILY RÍOS Facility: [facility]:[place] : 1935 Planned Disposition: Home Anticipated Discharge Date: 10/13/18 Discharge Date: Expected LOS: 4 Initial Reviewer: [email or web address] Initial Review Date: 10/13/2018 Generated: 10/13/18 11:49 am Comments DCP- Discharge Planning Updated by [email or web address]: Lilli Valentino on 10/13/18 9:[address] Patient Name: EMILY RÍOS Admission Status: Urgent Accout number: [id number] Admission Date: 10-09-2018 : 1935 Admission Diagnosis: Attending: SERGEY JENSEN Current LOS: 4 Anticipated DC Date: 10-13-2018 Planned Disposition: Home Primary Insurance: MEDICARE A & B Discharge Planning Comments: After obtaining verbal consent, CM met with patient and spouse about discharge planning / needs. Patient states she is returning home where she lives with her independently. States home environment is safe. Denies needs or concerns. Denies need for home health services. States her will drive her home upon discharge. CM explained and served DC IMM. CM will continue to follow and assist as needed with discharge planning / needs. Farm Planner: Lilli Valentino DCPIA - Discharge Planning Initial Assessment Updated by [email or web address]: Lilli Valentino on 10/13/18 10:39 am * Is the patient Alert and Oriented? Yes * How many steps to enter\exit or inside your home? * PCP Dr. Jensen * Pharmacy [facility] * Preadmission Environment Home with Family * ADLs Independent * Equipment None * List name and contact numbers for known caregivers / representatives who currently or will assist patient after discharge: Dany Ríos, Spouse, * Verbal permission to speak to the caregivers and representatives has been obtained from the patient. Yes * Community resources currently utilized None * Additional services required to return to the preadmission environment? No * Can the patient safely return to the preadmission environment? Yes * Has this patient been hospitalized within the prior 30 days at any hospital? No Coverage Notice Reviewer: [email or web address] Bryan Valentino Notice Issued Date-Time: 10/13/2018 10:41 Notice Type: IM Discharge Notice Notice Delivered To: Patient Relationship to Patient: Self Security Systems Technician Name: Delivery Method: HAND - Hand Delivered Kathy Days: Prior Verbal Notification: Recipient Understood Notice: Yes Recipient Signature: Yes Med Rec Note Co-signed by Attending: Coverage Notice Comment: Last DP export: 10/13/18 9:40 a Patient Name: MEILY RÍOS Page [phone] at 1049 All edits/amendments must be made on the electronic document DICTATION DATE: 10/13/18 1049 TECHNICAL SALES SUPPORT SPECIALIST: CINDY 10/13/18 1049 RPT#: [id number] DC DATE: STATUS: ADM IN [facility] [address] [place] [address] END OF REPORT
--- NOTE | 2018-10-13 10:52 | NUR ---
PT DISCHARGED HOME WITH VIA WHEELCHAIR. DISCONTINUED IV, CATHETER TIP INTACT. NO C/O PAIN. NO S/S OF ACUTE DISTRESS NOTED. WENT OVER DISCHARGE INSTRUCTIONS WITH PT, PT ACKNOWLEDGED. PT DENIES ANYTHING FURTHER.
--- NOTE | 2018-10-13 15:33 | MORECARE ---
CASE MANAGEMENT DISCHARGE SUMMARY PATIENT: EMILY RÍOS UNIT: [id number] ADM DATE: 10/09/18 AGE: 83 : 36 SEX: F ROOM/BED: D.1208 AUTHOR: STEPHEN,DOC PHYSICIAN: REFERRING PHYSICIAN: SERGEY JENSEN MD DATE OF SERVICE: 10/13/18 Discharge Plan Patient Name: EMILY RÍOS Facility: [facility]:[place] : 1935 Planned Disposition: Home Anticipated Discharge Date: 10/13/18 Discharge Date: 10/13/2018 Expected LOS: 4 Initial Reviewer: [email or web address] Initial Review Date: 10/13/2018 Generated: 10/13/18 4:32 pm Comments DCP- Discharge Planning Updated by [email or web address]: Lilli Valentino on 10/13/18 9:[address] Patient Name: EMILY RÍOS Admission Status: Urgent Accout number: [id number] Admission Date: 10-09-2018 : 1935 Admission Diagnosis: Attending: SERGEY JENSEN Current LOS: 4 Anticipated DC Date: 10-13-2018 Planned Disposition: Home Primary Insurance: MEDICARE A & B Discharge Planning Comments: After obtaining verbal consent, CM met with patient and spouse about discharge planning / needs. Patient states she is returning home where she lives with her independently. States home environment is safe. Denies needs or concerns. Denies need for home health services. States her will drive her home upon discharge. CM explained and served DC [facility]. CM will continue to follow and assist as needed with discharge planning / needs. Maintenance Mechanic Technician: Lilli Valentino DCPIA - Discharge Planning Initial Assessment Updated by [email or web address]: Lilli Valentino on 10/13/18 10:39 am * Is the patient Alert and Oriented? Yes * How many steps to enter\exit or inside your home? * PCP Dr. Jensen * Pharmacy [facility] * Preadmission Environment Home with Family * ADLs Independent * Equipment None * List name and contact numbers for known caregivers / representatives who currently or will assist patient after discharge: Dany Ríos, Spouse, * Verbal permission to speak to the caregivers and representatives has been obtained from the patient. Yes * Community resources currently utilized None * Additional services required to return to the preadmission environment? No * Can the patient safely return to the preadmission environment? Yes * Has this patient been hospitalized within the prior 30 days at any hospital? No Coverage Notice Reviewer: [id number] - Lilli Valentino Notice Issued Date-Time: 10/13/2018 10:41 Notice Type: IM Discharge Notice Notice Delivered To: Patient Relationship to Patient: Self Package Clerk Name: Delivery Method: HAND - Hand Delivered Kathy Days: Prior Verbal Notification: Recipient Understood Notice: Yes Recipient Signature: Yes Med Rec Note Co-signed by Attending: Coverage Notice Comment: Last DP export: 10/13/18 9:49 a Patient Name: EMILY RÍOS Page [phone] at 1533 All edits/amendments must be made on the electronic document DICTATION DATE: 10/13/181531 PROCESS LINE OPERATOR: CINDY 10/13/18 1532 RPT#: [id number] DC DATE:10/13/18 STATUS: DIS [facility] [address] [place] [address] END OF REPORT
== END 2018-10-13 10:54 | disposition home or self-care (01) | DRG 378 ==
LOC: D.M3 16:34
PROVIDERS: Internal Medicine Gastroenterology; ADMIT Family Medicine; ATTEND Family Medicine
PROC: 0DB58ZX Excision of Esophagus, Via Natural or Artificial Opening Endoscopic, Diagnostic (ICD-10-PCS; principal; 2018-10-13 07:35)
DX: K29.01 Acute gastritis with bleeding (principal); K22.10 Ulcer of esophagus without bleeding; D50.0 Iron deficiency anemia secondary to blood loss (chronic); Z79.01 Long term (current) use of anticoagulants; I25.10 Atherosclerotic heart disease of native coronary artery without angina pectoris; K22.70 Barrett's esophagus without dysplasia; I10 Essential (primary) hypertension; K21.9 Gastro-esophageal reflux disease without esophagitis; E78.5 Hyperlipidemia, unspecified; E03.9 Hypothyroidism, unspecified; K44.9 Diaphragmatic hernia without obstruction or gangrene; K29.80 Duodenitis without bleeding; Z95.5 Presence of coronary angioplasty implant and graft; Z95.1 Presence of aortocoronary bypass graft